=== PATIENT | male | born 1995 | race American Indian/Alaskan Native ===

== ENCOUNTER 2021-06-27 19:33 | Emergency (ER) | payer BC, OTHER ==
[2021-06-27 21:19] VITALS: BP 120/78
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
--- NOTE | 2021-06-27 22:36 | XRay Report ---
CHEST 2 VIEWS INDICATION / CLINICAL INFORMATION: chest pain. COMPARISON: None available. FINDINGS: SUPPORT DEVICES: None. HEART / MEDIASTINUM: No significant abnormality. LUNGS / PLEURA: No significant pulmonary or pleural abnormality. No pneumothorax. ADDITIONAL FINDINGS: No significant additional findings. IMPRESSION: 1. No acute findings. Signer Name: Tim Mcginnis MD Signed: 06/27/2021 10:31 PM Workstation Name: [id number]
[2021-06-27] MEDS ORDERED: IBUPROFEN 800 MG TAB PO ONE (22:58)
== END 2021-06-27 23:10 | disposition home or self-care (01) ==
LOC: ED 19:33
DX: R07.89 Other chest pain (principal); Z79.899 Other long term (current) drug therapy; V49.59XA Passenger injured in collision with other motor vehicles in traffic accident, initial encounter; Y92.410 Unspecified street and highway as the place of occurrence of the external cause; Y93.89 Activity, other specified; Y99.8 Other external cause status
CPT/HCPCS: 71046

== ENCOUNTER → 2021-12-18 | Emergency (ER) | payer BC ==
[2021-12-18 21:53] VITALS: BP 152/109
== END ==
LOC: ED 21:13
DX: Z04.1 Encounter for examination and observation following transport accident (principal); Z53.21 Procedure and treatment not carried out due to patient leaving prior to being seen by health care provider; X58.XXXA Exposure to other specified factors, initial encounter; Y93.89 Activity, other specified; Y92.89 Other specified places as the place of occurrence of the external cause; Y99.8 Other external cause status

== ENCOUNTER 2021-12-19 17:00 | Emergency (ER) | payer OTHER, BC ==
[2021-12-19 21:37] VITALS: BP 147/88
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
[2021-12-19] MEDS ORDERED: IBUPROFEN 600 MG TAB PO ONE (22:46)
[2021-12-19] MEDS ORDERED: ACETAMINOPHEN 500 MG TAB PO ONE (22:46)
== END 2021-12-19 23:37 | disposition home or self-care (01) ==
LOC: ED 17:00
DX: M79.18 Myalgia, other site (principal); M54.9 Dorsalgia, unspecified; V49.59XA Passenger injured in collision with other motor vehicles in traffic accident, initial encounter; Y93.89 Activity, other specified; Y92.89 Other specified places as the place of occurrence of the external cause; Y99.8 Other external cause status
CPT/HCPCS: 99282